=== PATIENT | male | born 1945 | race African-American/Black ===

== ENCOUNTER 2016-09-25 21:48 | Inpatient (IN) | payer MEDICARE, OTHER ==
[~2016-09-25] VITALS: Ht 167.6 cm; Wt 83.2 kg
[~2016-09-25 21:48] MED LIST: ACYC200C PO; ALFU10TA12 PO; ATEN50TA PO; BRIM0.1S3 EACHEYE; BRIN1SUS LEFTEYE; ENAL2.5T PO; FLUT250M2 INH; GABA300C8 PO; SIMV-13 PO; TIOTCAP INH
[2016-09-25 23:38] LABS: Basophils # (auto) 0.1 uL; Basophils % (auto) 1.2 % (0.0-2.0); Eosinophils # (auto) 0.1 uL; Eosinophils % (auto) 2.5 % (0.0-7.0); Hematocrit 42.8 % (41.0-53.0); Hemoglobin 13.8 g/dL (13.5-17.5); Lymphocytes # (auto) 1.7 uL; Lymphocytes % (auto) 36.8 % (10.0-50.0); Mean Corpuscular Hemoglobin 28.9 pg (28.0-32.0); Mean Corpuscular Hgb Conc. 32.3 g/dL (32.0-36.0); Mean Corpuscular Volume 89.5 fL (80.0-100.0); Mean Platelet Volume 8.5 fL (7.4-10.4); Monocytes # (auto) 0.5 uL; Monocytes % (auto) 10.7 % (0.0-12.0); Neutrophils # (auto) 2.3 uL; Neutrophils % (auto) 48.8 % (37.0-80.0); Platelet Count (auto) 205 10^3/uL (140-450); Red Cell Distribution Width 14.5 % (11.6-16.0); White Blood Cell 4.6 10^3/uL (4.4-10.8)
[2016-09-25 23:55] LABS: Partial Thromboplastin Time 27.4 sec (22.64-33.71); Prothrombin Time 11.9 sec (9.37-12.3)
[2016-09-25 23:57] LABS: INR 1.16 (0.9-1.15)
[2016-09-26 00:01] LABS: Albumin 3.6 g/dL (3.4-5.0); BUN/Creatinine Ratio 14.7; Bilirubin, Total 0.3 mg/dL (0.2-1.0); Calcium 8.8 mg/dL (8.5-10.1); Magnesium 2.2 mg/dL (1.6-2.6); Potassium 4.2 mmol/L (3.5-5.1); Total Protein 7.1 g/dL (6.4-8.2)
[2016-09-26] MEDS ORDERED: MORPHINE SULF INJ 2 MG/ML SYRINGE 1ML IV ONE ×2 (00:45→02:00)
[2016-09-26] MEDS ORDERED: ONDANSETRON HCL 4 MG/2 ML VIAL IV ONE (00:45)
[2016-09-26] MEDS ORDERED: ASPirin 81 mg TAB PO ONE (02:00)
[2016-09-26] MEDS ORDERED: HYDROmorphone HCL 2 MG/ML VL IV ONE (05:15)
[2016-09-26] MEDS ORDERED: ACETAMINOPHEN 325 MG TAB PO PRN (06:15)
[2016-09-26] MEDS ORDERED: MORPHINE SULF INJ 2 MG/ML SYRINGE 1ML IV PRN ×3 (06:15→17:15)
[2016-09-26] MEDS ORDERED: ONDANSETRON HCL 4 MG/2 ML VIAL IV PRN (06:15)
[2016-09-26] MEDS ORDERED: HYDROcodone-ACET 5/325MG TAB PO PRN ×2 (06:15→17:15)
[2016-09-26] MEDS ORDERED: NITROGLYCERIN 0.4 MG SL TAB SL PRN ×2 (06:15→17:15)
[2016-09-26] MEDS ORDERED: TAMS0.4C36 PO (07:34)
[2016-09-26] MEDS ORDERED: POLY33504 PO (07:34)
[2016-09-26 09:00] VITALS: BP 132/78
[2016-09-26] MEDS ORDERED: ENOXAPARIN SOD 40 MG/0.4 ML SYRINGE SC SCH (10:00)
[2016-09-26] MEDS: GABAPENTIN 300 MG CAP PO SCH (10:52)
[2016-09-26] MEDS: ATENOLOL 50 MG TAB PO SCH (11:16)
[2016-09-26] MEDS: FAMOTIDINE 20 MG TAB PO SCH ×2 (11:16→21:51)
[2016-09-26] MEDS: ENALAPRIL MALEATE 2.5 MG TAB PO SCH (11:16)
[2016-09-26 12:48] LABS: B-Type Natriuretic Peptide 115.64 pg/mL (0-100); Temperature: 22.3 C (20.0-25.0)
[2016-09-26 13:00] VITALS: BP 138/79
[2016-09-26] MEDS ORDERED: METOCLOPRAMIDE HCL 10 MG TAB PO ONE (13:45)
[2016-09-26] MEDS ORDERED: IODIXANOL 320MG/ML 100ML BTL IV ONE (14:28)
[2016-09-26] MEDS ORDERED: LIDOCAINE 2%HCL (LOCAL ANESTH.) INJ 20ML MDV ONE (14:28)
[2016-09-26] MEDS ORDERED: ANGIOMAX 250 MG VIAL IV ONE (15:53)
[2016-09-26] MEDS ORDERED: NITROGLYCERIN 5MG/ML 10ML VIAL IV ONE (15:53)
[2016-09-26] MEDS ORDERED: MIDAZOLAM HCL 1MG/1ML-2 ML VIAL ONE (15:54)
[2016-09-26] MEDS ORDERED: fentaNYL CITRATE 100 MCG/2 ML VL ONE (15:54)
[2016-09-26] MEDS ORDERED: SODIUM CHL 0.9% 100 ML ONE (15:54)
[2016-09-26] MEDS ORDERED: VERAPAMIL 2.5MG/ML INJ 2ML VIAL IV ONE (15:55)
[2016-09-26] MEDS ORDERED: HEPARIN 1,000 UNITS/ml 1ML VIAL ONE (16:13)
[2016-09-26] MEDS ORDERED: CLOPIDOGREL 300 MG TAB ONE (16:42)
[2016-09-26] MEDS ORDERED: SODIUM CHL 0.9% 50 ML ONE (16:54)
[2016-09-26] MEDS ORDERED: SODIUM CHLORIDE 0.9% 1,000 ML IV SCH (17:10)
[2016-09-26] MEDS ORDERED: ZOLPIDEM TARTRATE 5 MG TAB PO PRN (17:15)
[2016-09-26] MEDS ORDERED: TAMSULOSIN HYDROCHLORIDE 0.4 MG CAP PO SCH (18:00)
[2016-09-26] MEDS ORDERED: CLOPIDOGREL 300 MG TAB PO ONE (18:30)
[2016-09-26 22:00] VITALS: BP 137/80
[2016-09-26] MEDS ORDERED: PATIENTS OWN MEDICATION (simvastatin 40 MG) PO SCH ×2 (22:00)
[2016-09-26] MEDS ORDERED: ATORVASTATIN 20 MG TAB PO SCH (22:00)
[2016-09-27 05:00] VITALS: BP 107/70
[2016-09-27] MEDS ORDERED: LACTULOSE 20Gm/30ML SOLN PO PRN (05:00)
[2016-09-27] MEDS ORDERED: CALCIUM CARB 500 MG CHEW TAB PO PRN (05:00)
[2016-09-27 05:25] VITALS: BP 136/71
[2016-09-27] MEDS ORDERED: OMEP20CA5 PO (06:34)
[2016-09-27 06:45] LABS: BUN/Creatinine Ratio 13.5; Calcium 8.8 mg/dL (8.5-10.1)
[2016-09-27 08:23] LABS: Basophils # (auto) 0 uL; Basophils % (auto) 0.1 % (0.0-2.0); Eosinophils # (auto) 0.1 uL; Eosinophils % (auto) 2.5 % (0.0-7.0); Hematocrit 42.4 % (41.0-53.0); Hemoglobin 13.7 g/dL (13.5-17.5); Lymphocytes % (auto) 19.7 % (10.0-50.0); Mean Corpuscular Hemoglobin 28.9 pg (28.0-32.0); Mean Corpuscular Hgb Conc. 32.4 g/dL (32.0-36.0); Mean Corpuscular Volume 89.1 fL (80.0-100.0); Mean Platelet Volume 8.6 fL (7.4-10.4); Monocytes # (auto) 0.5 uL; Monocytes % (auto) 9.4 % (0.0-12.0); Neutrophils # (auto) 3.6 uL; Neutrophils % (auto) 68.3 % (37.0-80.0); Platelet Count (auto) 180 10^3/uL (140-450); Red Cell Distribution Width 14.4 % (11.6-16.0); White Blood Cell 5.2 10^3/uL (4.4-10.8)
[2016-09-27 09:00] VITALS: BP 131/80
[2016-09-27] MEDS: GABAPENTIN 300 MG CAP PO SCH (10:00)
[2016-09-27] MEDS ORDERED: PANTOPRAZOLE 40 MG TAB PO SCH (10:00)
[2016-09-27] MEDS ORDERED: CLOPIDOGREL BISULFATE 75 MG TAB PO SCH (10:00)
[2016-09-27] MEDS ORDERED: OMEPRAZOLE 20MG/10ML ORAL SUSP PO SCH (10:00)
[2016-09-27] MEDS ORDERED: ASPirin 81 mg TAB PO SCH (10:00)
[2016-09-27] MEDS: ENALAPRIL MALEATE 2.5 MG TAB PO SCH (10:23)
[2016-09-27] MEDS: ATENOLOL 50 MG TAB PO SCH (10:28)
[2016-09-27 11:44] VITALS: BP 131/80
== END 2016-09-27 12:03 | disposition home or self-care (01) | DRG 247 ==
LOC: ER 21:59 → TELE 22:00 → TELE-CENTR 09-26 07:47 → TELE-E-ADS 09-26 08:07 → TELE-CENTR 09-26 09:06
PROVIDERS: ADMIT Nurse Practitioner; ATTEND Internal Medicine
PROC: 027034Z Dilation of Coronary Artery, One Artery with Drug-eluting Intraluminal Device, Percutaneous Approach (ICD-10-PCS; principal; 2016-09-26)
PROC: 4A023N7 Measurement of Cardiac Sampling and Pressure, Left Heart, Percutaneous Approach (ICD-10-PCS; 2016-09-26)
PROC: B2111ZZ Fluoroscopy of Multiple Coronary Arteries using Low Osmolar Contrast (ICD-10-PCS; 2016-09-26)
DX: I25.10 Atherosclerotic heart disease of native coronary artery without angina pectoris (principal); E11.22 Type 2 diabetes mellitus with diabetic chronic kidney disease; E78.5 Hyperlipidemia, unspecified; H40.9 Unspecified glaucoma; I12.9 Hypertensive chronic kidney disease with stage 1 through stage 4 chronic kidney disease, or unspecified chronic kidney disease; N18.2 Chronic kidney disease, stage 2 (mild); K80.20 Calculus of gallbladder without cholecystitis without obstruction; J44.9 Chronic obstructive pulmonary disease, unspecified; N40.0 Benign prostatic hyperplasia without lower urinary tract symptoms; Z82.49 Family history of ischemic heart disease and other diseases of the circulatory system; Z95.5 Presence of coronary angioplasty implant and graft; Z83.3 Family history of diabetes mellitus; Z79.02 Long term (current) use of antithrombotics/antiplatelets; Z88.0 Allergy status to penicillin; Z79.899 Other long term (current) drug therapy; Z90.49 Acquired absence of other specified parts of digestive tract; Z98.890 Other specified postprocedural states; Z84.89 Family history of other specified conditions; Z83.2 Family history of diseases of the blood and blood-forming organs and certain disorders involving the immune mechanism
CPT/HCPCS: 36415; 71010; 76705; 80048; 80053; 83690; 83735; 83880; 84484; 85025; 85049; 85610; 85730; 92928; 93005; 93458; 94761; 96374; 96375; 96376; 99152; C1874; J2250; J2405; J3490; Q9967

== ENCOUNTER 2016-09-29 00:08 | Inpatient (IN) | payer MEDICARE, OTHER ==
[~2016-09-29] VITALS: Ht 167.6 cm; Wt 81.6 kg
[~2016-09-29 00:08] MED LIST changes: +OMEP20CA5 PO; +POLY33504 PO; +TAMS0.4C36 PO
[2016-09-29 01:30] LABS: Basophils # (auto) 0 uL; Basophils % (auto) 0.7 % (0.0-2.0); Eosinophils # (auto) 0.1 uL; Eosinophils % (auto) 2.2 % (0.0-7.0); Hematocrit 41.5 % (41.0-53.0); Hemoglobin 13.8 g/dL (13.5-17.5); Lymphocytes # (auto) 1.4 uL; Lymphocytes % (auto) 26.7 % (10.0-50.0); Mean Corpuscular Hemoglobin 29.1 pg (28.0-32.0); Mean Corpuscular Hgb Conc. 33.2 g/dL (32.0-36.0); Mean Corpuscular Volume 87.7 fL (80.0-100.0); Mean Platelet Volume 8.8 fL (7.4-10.4); Monocytes # (auto) 0.6 uL; Monocytes % (auto) 12.1 % (0.0-12.0); Neutrophils # (auto) 3.1 uL; Neutrophils % (auto) 58.3 % (37.0-80.0); Platelet Count (auto) 191 10^3/uL (140-450); Red Cell Distribution Width 14.2 % (11.6-16.0); White Blood Cell 5.3 10^3/uL (4.4-10.8)
[2016-09-29 01:54] LABS: Albumin 3.6 g/dL (3.4-5.0); Calcium 8.8 mg/dL (8.5-10.1); Magnesium 2.3 mg/dL (1.6-2.6); Potassium 3.8 mmol/L (3.5-5.1)
[2016-09-29 01:56] LABS: BUN/Creatinine Ratio 13.2; Partial Thromboplastin Time 26.6 sec (22.64-33.71)
[2016-09-29 01:58] LABS: INR 1.17 (0.9-1.15)
[2016-09-29 01:59] LABS: Bilirubin, Total 0.3 mg/dL (0.2-1.0); Total Protein 7.3 g/dL (6.4-8.2)
[2016-09-29] MEDS ORDERED: LACTULOSE 20Gm/30ML SOLN PO PRN (11:30)
[2016-09-29] MEDS ORDERED: PROMETHAZINE HCL 25 MG/ML 1ML IV PRN (11:30)
[2016-09-29] MEDS ORDERED: MORPHINE SULF INJ 2 MG/ML SYRINGE 1ML IV PRN ×3 (11:30→13:00)
[2016-09-29] MEDS ORDERED: ACETAMINOPHEN 500 MG TAB PO PRN (11:30)
[2016-09-29] MEDS ORDERED: ALBUTEROL SULF 2.5 MG/0.5ML(0.5%) NEB SOLN NEB PRN (11:30)
[2016-09-29] MEDS ORDERED: HYDROcodone-ACET 5/325MG TAB PO PRN (11:30)
[2016-09-29] MEDS ORDERED: LORazepam 0.5 MG TAB PO PRN (11:30)
[2016-09-29] MEDS ORDERED: ASPirin 81 mg TAB PO ONE (11:30)
[2016-09-29] MEDS ORDERED: TEMAZEPAM 15 MG CAP PO PRN (11:30)
[2016-09-29] MEDS ORDERED: NITROGLYCERIN 0.4 MG SL TAB SL PRN (11:30)
[2016-09-29] MEDS ORDERED: NITROGLYCERIN 0.2MG/HR TOPICAL PATCH TD SCH (11:45)
[2016-09-29] MEDS ORDERED: ENOXAPARIN SOD 40 MG/0.4 ML SYRINGE SC SCH (11:45)
[2016-09-29] MEDS ORDERED: FUROSEMIDE 40 MG/4 ML VIAL IV SCH (11:45)
[2016-09-29] MEDS ORDERED: ENALAPRIL MALEATE 2.5 MG TAB PO SCH (11:45)
[2016-09-29] MEDS ORDERED: POTASSIUM CHL 20 Meq TABLET PO SCH (11:45)
[2016-09-29] MEDS ORDERED: PANTOPRAZOLE 40 MG TAB PO SCH (11:45)
[2016-09-29] MEDS ORDERED: CARVEDILOL 3.125 MG TAB PO SCH (11:45)
[2016-09-29 12:35] VITALS: BP 132/77
[2016-09-29] MEDS ORDERED: MORPHINE SULFATE 4 MG/ML SYRG ONE (12:56)
[2016-09-29] MEDS ORDERED: SODIUM CHLOR 0.9% PF (SALINE LOCK) 10ML VIAL IV SCH (14:00)
[2016-09-29] MEDS ORDERED: CLOPIDOGREL BISULFATE 75 MG TAB PO SCH (14:00)
[2016-09-29] MEDS: IPRATROPIUM BROM 0.5 MG/2.5ML INH SOL NEB SCH ×2 (14:04→18:00)
[2016-09-29] MEDS: ALBUTEROL SULF 2.5 MG/0.5ML(0.5%) NEB SOLN NEB SCH ×2 (14:04→18:37)
[2016-09-29] MEDS ORDERED: POLYETHYLENE GLYCOL 17GM PWDR PO PRN (17:00)
[2016-09-29 17:01] VITALS: BP 106/64
[2016-09-29 20:04] VITALS: BP 111/70
[2016-09-30] MEDS ORDERED: ASPirin 81 mg TAB PO SCH (10:00)
== END 2016-09-29 20:30 | disposition home or self-care (01) | DRG 313 ==
LOC: ER 00:10 → TELE 00:11 → TELE-CENTR 12:30
PROVIDERS: ADMIT Internal Medicine; ATTEND Internal Medicine
DX: R07.89 Other chest pain (principal); I13.0 Hypertensive heart and chronic kidney disease with heart failure and stage 1 through stage 4 chronic kidney disease, or unspecified chronic kidney disease; I50.32 Chronic diastolic (congestive) heart failure; I25.10 Atherosclerotic heart disease of native coronary artery without angina pectoris; E87.8 Other disorders of electrolyte and fluid balance, not elsewhere classified; J44.9 Chronic obstructive pulmonary disease, unspecified; R73.9 Hyperglycemia, unspecified; N18.9 Chronic kidney disease, unspecified; N40.0 Benign prostatic hyperplasia without lower urinary tract symptoms; Z82.49 Family history of ischemic heart disease and other diseases of the circulatory system; Z83.3 Family history of diabetes mellitus; I25.2 Old myocardial infarction; Z95.5 Presence of coronary angioplasty implant and graft; Z95.818 Presence of other cardiac implants and grafts; Z88.0 Allergy status to penicillin; Z79.899 Other long term (current) drug therapy; Z90.49 Acquired absence of other specified parts of digestive tract; Z90.89 Acquired absence of other organs; Z81.1 Family history of alcohol abuse and dependence; Z80.9 Family history of malignant neoplasm, unspecified; Z82.61 Family history of arthritis; E78.5 Hyperlipidemia, unspecified
CPT/HCPCS: 36415; 71020; 80053; 82550; 83735; 84443; 84484; 85025; 85049; 85379; 85610; 85652; 85730; 86141; 87040; 87081; 93005; 93306; 94640; 96372; 96374

== ENCOUNTER → 2016-10-10 | Outpatient (CLI) | payer MEDICARE, OTHER | END | disposition home or self-care (01) | LOC: LAB 15:34 | PROVIDERS: ATTEND Internal Medicine | DX: Z00.00 Encounter for general adult medical examination without abnormal findings (principal) | CPT/HCPCS: 82270 ==

== ENCOUNTER → 2017-02-01 | Outpatient (CLI) | payer MEDICARE, OTHER ==
[2017-02-01 10:00] LABS: Basophils # (auto) 0 uL; Basophils % (auto) 0.8 % (0.0-2.0); Eosinophils # (auto) 0.2 uL; Eosinophils % (auto) 4.9 % (0.0-7.0); Hematocrit 45.5 % (41.0-53.0); Hemoglobin 15.4 g/dL (13.5-17.5); Lymphocytes # (auto) 1.4 uL; Lymphocytes % (auto) 31.6 % (10.0-50.0); Mean Corpuscular Hemoglobin 30.5 pg (28.0-32.0); Mean Corpuscular Hgb Conc. 33.9 g/dL (32.0-36.0); Mean Corpuscular Volume 89.9 fL (80.0-100.0); Mean Platelet Volume 8.6 fL (7.4-10.4); Monocytes # (auto) 0.6 uL; Monocytes % (auto) 12.9 % (0.0-12.0); Neutrophils # (auto) 2.1 uL; Neutrophils % (auto) 49.8 % (37.0-80.0); Platelet Count (auto) 210 10^3/uL (140-450); Red Cell Distribution Width 13.9 % (11.6-16.0); White Blood Cell 4.3 10^3/uL (4.4-10.8)
[2017-02-01 10:21] LABS: Albumin 4.3 g/dL (3.4-5.0); BUN/Creatinine Ratio 13.9; Bilirubin, Total 0.4 mg/dL (0.2-1.0); Calcium 9.8 mg/dL (8.5-10.1); Potassium 4.3 mmol/L (3.5-5.1); Total Protein 8.1 g/dL (6.4-8.2)
== END | disposition home or self-care (01) ==
LOC: LAB 09:22
PROVIDERS: ATTEND Internal Medicine
DX: I10 Essential (primary) hypertension (principal); Z00.00 Encounter for general adult medical examination without abnormal findings; E78.2 Mixed hyperlipidemia
CPT/HCPCS: 36415; 80053; 80061; 83036; 84153; 85025

== ENCOUNTER 2017-05-18 11:14 | Day surgery (SDC) | payer MEDICARE, OTHER ==
[2017-05-15 14:27] LABS: Basophils # (auto) 0 uL; Basophils % (auto) 0.8 % (0.0-2.0); CONDITION Y; Eosinophils # (auto) 0.2 uL; Eosinophils % (auto) 4.5 % (0.0-7.0); Hematocrit 42.9 % (41.0-53.0); Hemoglobin 14.4 g/dL (13.5-17.5); Lymphocytes # (auto) 1.3 uL; Lymphocytes % (auto) 31.2 % (10.0-50.0); Mean Corpuscular Hemoglobin 30.5 pg (28.0-32.0); Mean Corpuscular Hgb Conc. 33.5 g/dL (32.0-36.0); Mean Corpuscular Volume 91.1 fL (80.0-100.0); Mean Platelet Volume 8.7 fL (7.4-10.4); Monocytes # (auto) 0.4 uL; Monocytes % (auto) 8.7 % (0.0-12.0); Neutrophils # (auto) 2.3 uL; Neutrophils % (auto) 54.8 % (37.0-80.0); Platelet Count (auto) 214 10^3/uL (140-450); Red Cell Distribution Width 14.8 % (11.6-16.0); White Blood Cell 4.3 10^3/uL (4.4-10.8)
[2017-05-15 14:41] LABS: INR 1.05 (0.9-1.15); Partial Thromboplastin Time 26.1 sec (22.64-33.71); Prothrombin Time 11.4 sec (9.37-12.3)
[2017-05-15 15:12] LABS: Albumin 3.9 g/dL (3.4-5.0); BUN/Creatinine Ratio 14.8; Bilirubin, Total 0.3 mg/dL (0.2-1.0); Potassium 4.1 mmol/L (3.5-5.1); Total Protein 7.5 g/dL (6.4-8.2)
[2017-05-16 13:04] LABS: Urine RBC None Seen /hpf (0 - 3)
[2017-05-16 13:31] LABS: Urine Bilirubin Negative (Negative); Urine Blood Negative /uL (Negative); Urine Color Yellow (Yellow); Urine Glucose Normal (Normal); Urine Ketone Negative (Negative); Urine Nitrite Negative (Negative); Urine Squamous Epithelial Cell FEW /hpf (<5); Urine Urobilinogen Normal (Negative)
[~2017-05-18] VITALS: Ht 167.6 cm; Wt 79.8 kg
[~2017-05-18 11:14] MED LIST changes: +ACYC1CAP23 PO; -ACYC200C PO; -ALFU10TA12 PO; +ASPI81TA27 PO; +CLOP75TA28 PO; +FURO20TA3 PO; -GABA300C8 PO; +MISC450C OR; -OMEP20CA5 PO; +PRO625LQ OR; +SPIR25TA89 PO; -TAMS0.4C36 PO
[2017-05-18] MEDS ORDERED: MIDAZOLAM HCL 1MG/1ML-2 ML VIAL ONE (13:15)
[2017-05-18] MEDS ORDERED: fentaNYL CITRATE 100 MCG/2 ML VL ONE (13:15)
[2017-05-18] MEDS ORDERED: CLINDAMYCIN 600MG IV 50 ML IV ONE (13:18)
[2017-05-18] MEDS ORDERED: PROPOFOL 10 MG/ML 20 ML IV ONE (13:38)
[2017-05-18] MEDS ORDERED: DEXAMETHASONE SOD PHOS 10MG/1ML VIAL INJ ONE (13:38)
[2017-05-18] MEDS ORDERED: BUPIVACAINE 0.75% INJ 10ML MPV SDV IJ ONE (13:39)
[2017-05-18] MEDS ORDERED: KETOROLAC TROMETH 30 MG/ML 1ML VIAL IV ONE (14:30)
[2017-05-18] MEDS ORDERED: MIDAZOLAM HCL 1MG/1ML-2 ML VIAL IV PRN (14:30)
[2017-05-18] MEDS ORDERED: ONDANSETRON HCL 4 MG/2 ML VIAL IV ONE (14:30)
[2017-05-18] MEDS ORDERED: ePHEDrine SULFATE 50 MG/ML AMP IV PRN (14:30)
[2017-05-18] MEDS ORDERED: HYDROmorphone HCL 2 MG/ML VL IV PRN (14:30)
[2017-05-18] MEDS ORDERED: MORPHINE SULF INJ 2 MG/ML SYRINGE 1ML IV PRN (14:30)
[2017-05-18] MEDS ORDERED: LABETALOL HCL 5 MG/ML 4ML SYRINGE IV PRN (14:30)
[2017-05-18 14:37] VITALS: BP 115/74
== END 2017-05-18 14:54 | disposition home or self-care (01) ==
LOC: SUR 11:14
PROVIDERS: ATTEND Podiatrist Foot & Ankle Surgery
DX: M20.5X1 Other deformities of toe(s) (acquired), right foot (principal); Z88.0 Allergy status to penicillin; I20.9 Angina pectoris, unspecified; J44.9 Chronic obstructive pulmonary disease, unspecified; J45.909 Unspecified asthma, uncomplicated
CPT/HCPCS: 28285; 36415; 80053; 81001; 85025; 85610; 85730; J1100; J2250; J2704; J3010; J3490

== ENCOUNTER 2018-02-07 09:04 | Emergency (ER) | payer MEDICARE, OTHER ==
[~2018-02-07] VITALS: Ht 167.6 cm; Wt 83.0 kg
[2018-02-07] MEDS ORDERED: ASPirin 81 mg TAB PO ONE (09:45)
[2018-02-07 09:46] VITALS: BP 139/90
[2018-02-07 10:00] LABS: Basophils # (auto) 0 uL; Basophils % (auto) 0.7 % (0.0-2.0); Eosinophils # (auto) 0.3 uL; Eosinophils % (auto) 5.6 % (0.0-7.0); Hematocrit 41.9 % (41.0-53.0); Hemoglobin 13.8 g/dL (13.5-17.5); Lymphocytes % (auto) 19.5 % (10.0-50.0); Mean Corpuscular Hemoglobin 29.9 pg (28.0-32.0); Mean Corpuscular Volume 90.6 fL (80.0-100.0); Monocytes # (auto) 0.5 uL; Neutrophils # (auto) 3.4 uL; Neutrophils % (auto) 65.2 % (37.0-80.0); Platelet Count (auto) 190 10^3/uL (140-450); Red Blood Cells 4.62 10^6/uL (4.5-5.90); White Blood Cell 5.1 10^3/uL (4.4-10.8)
[2018-02-07 10:25] LABS: Albumin 3.8 g/dL (3.4-5.0); BUN/Creatinine Ratio 10.4; Bilirubin, Total 0.4 mg/dL (0.2-1.0); Calcium 9.4 mg/dL (8.5-10.1); Potassium 4.4 mmol/L (3.5-5.1); Total Protein 7.4 g/dL (6.4-8.2)
[2018-02-07] MEDS: KETOROLAC TROMETH 30 MG/ML 1ML VIAL IV ONE ×2 (11:05→11:31)
[2018-02-07] MEDS ORDERED: KETOROLAC TROMETH 60MG/2ML VIAL IM ONE (11:30)
== END 2018-02-07 13:12 | disposition home or self-care (01) ==
LOC: ER 09:09
DX: S86.912A Strain of unspecified muscle(s) and tendon(s) at lower leg level, left leg, initial encounter (principal); I25.10 Atherosclerotic heart disease of native coronary artery without angina pectoris; J44.9 Chronic obstructive pulmonary disease, unspecified; E78.5 Hyperlipidemia, unspecified; M18.9 Osteoarthritis of first carpometacarpal joint, unspecified; I12.9 Hypertensive chronic kidney disease with stage 1 through stage 4 chronic kidney disease, or unspecified chronic kidney disease; M19.90 Unspecified osteoarthritis, unspecified site; Z88.0 Allergy status to penicillin; Z95.5 Presence of coronary angioplasty implant and graft; Z79.82 Long term (current) use of aspirin; Z90.49 Acquired absence of other specified parts of digestive tract; X58.XXXA Exposure to other specified factors, initial encounter; Y93.9 Activity, unspecified; Y92.9 Unspecified place or not applicable; Y99.8 Other external cause status
CPT/HCPCS: 36415; 71045; 80053; 84484; 85025; 93971; 94761; 96372; 99285; J1885; 93005

== ENCOUNTER 2018-08-09 19:51 | Emergency (ER) | payer MEDICARE, OTHER ==
[~2018-08-09] VITALS: Ht 167.6 cm; Wt 85.3 kg
[~2018-08-09 19:51] MED LIST changes: +SPIR25TA8 PO; -SPIR25TA89 PO
[2018-08-09 22:18] VITALS: BP 137/76
== END 2018-08-09 22:24 | disposition home or self-care (01) ==
LOC: ER 19:51
DX: S20.219A Contusion of unspecified front wall of thorax, initial encounter (principal); M62.838 Other muscle spasm; I12.9 Hypertensive chronic kidney disease with stage 1 through stage 4 chronic kidney disease, or unspecified chronic kidney disease; N18.9 Chronic kidney disease, unspecified; J44.9 Chronic obstructive pulmonary disease, unspecified; E78.5 Hyperlipidemia, unspecified; I25.810 Atherosclerosis of coronary artery bypass graft(s) without angina pectoris; M19.90 Unspecified osteoarthritis, unspecified site; Z88.0 Allergy status to penicillin; Z79.899 Other long term (current) drug therapy; V49.9XXA Car occupant (driver) (passenger) injured in unspecified traffic accident, initial encounter; Y93.I9 Activity, other involving external motion; Y92.488 Other paved roadways as the place of occurrence of the external cause; Y99.8 Other external cause status
CPT/HCPCS: 71045; 72040; 73030; 93005